=== PATIENT | female | born 1995 | race Caucasian/White ===

== ENCOUNTER 2018-06-14 06:26 | Emergency (ER) | payer MEDICAID ==
[~2018-06-14] VITALS: Ht 154.9 cm; Wt 58.0 kg
[2018-06-14 06:28] VITALS: BP 112/74; PULSE 75; RESP 16; Ht 154.9 cm; Wt 58.0 kg
--- NOTE | 2018-06-14 08:15 | ERD ---
ER Documentation Chief Complaint Chief Complaint pt is bib family approx 7 wks , bleeding starting this am HPI 22-year-old female presenting with vaginal bleeding that started this morning. Patient believes she is about 7 weeks . A1. LMP April 27. She is some mild suprapubic tenderness but no lateralized pain. She is being seen at outside clinic but does not recall the name. Denies medical problems. NKDA. Surgical history denies. Social history denies ROS All systems reviewed and are negative except as per history of present illness. Allergies Allergies: Coded Allergies: No Known Allergy (Unverified , 06/14/18) PMhx/Soc Medical and Surgical Hx: pt denies Medical Hx, pt denies Surgical Hx Hx Alcohol Use: No Hx Substance Use: No Hx Tobacco Use: No Smoking Status: Never smoker FmHx Family History: No diabetes, No coronary disease, No other Physical Exam Vitals Vital Signs Date Temp Pulse Resp B/P (MAP) Pulse Ox O2 O2 Flow FiO2 Time Delivery Rate 06/14/18 98.3 75 16 112/74 99 06:28 (87) Physical Exam GENERAL: The patient is well-appearing, well-nourished, in no acute distress CHEST: Clear to auscultation bilaterally. There are no rales, wheezes or rhonchi. HEART: Regular rate and rhythm. No murmurs, clicks, rubs or gallops. No S3 or S4. ABDOMEN:Soft, nontender and nondistended. Good bowel sounds. No rebound or guarding. No gross peritonitis. No gross organomegaly or masses. Result Diagram: 06/14/18 0650 Results 24 hrs Laboratory Tests Test 06/14/18 06:49 06/14/18 06:50 Urine Color YELLOW Urine Clarity SLIGHTLY CLOUDY Urine pH 6.0 Urine Specific [place] 1.016 Urine Ketones NEGATIVE mg/dL Urine Nitrite NEGATIVE mg/dL Urine Bilirubin NEGATIVE mg/dL Urine Urobilinogen NEGATIVE mg/dL Urine Leukocyte Esterase NEGATIVE [place]/ul Urine Microscopic RBC > 182 /HPF Urine Microscopic WBC 4 /HPF Urine Bacteria FEW /HPF Urine Hemoglobin 3+ mg/dL Urine Glucose NEGATIVE mg/dL Urine Total Protein NEGATIVE mg/dl White Blood Count 7.8 10^3/ul Red Blood Count 4.80 10^6/ul Hemoglobin 13.0 g/dl Hematocrit 40.0 % Mean Corpuscular Volume 83.3 fl Mean Corpuscular Hemoglobin 27.1 pg Mean Corpuscular Hemoglobin Concent 32.5 g/dl Red Cell Distribution Width 12.8 % Platelet Count 372 10^3/UL Mean Platelet Volume 10.8 fl Immature Granulocytes % 0.400 % Neutrophils % 57.1 % Lymphocytes % 31.6 % Monocytes % 7.2 % Eosinophils % 2.9 % Basophils % 0.8 % Nucleated Red Blood Cells % 0.0 /100WBC Immature Granulocytes # 0.030 10^3/ul Neutrophils # 4.5 10^3/ul Lymphocytes # 2.5 10^3/ul Monocytes # 0.6 10^3/ul Eosinophils # 0.2 10^3/ul Basophils # 0.1 10^3/ul Nucleated Red Blood Cells # 0.0 10^3/ul Beta HCG, Quantitative 649.7 mIU/ml Procedures/MDM DIAGNOSTIC IMAGING REPORT Patient: STEFAINA SUTTON : 1995 Age: 22 Sex: F MR #: [id number] DOS: 06/14/18 0643 Ordering MD: BRISA HOBSON PA-C Location: [facility] Room/Bed: PROCEDURE: US Pelvis. CLINICAL INDICATION: vaginal bleeding TECHNIQUE: Multiple sonographic images of the pelvis were obtained utilizing a transabdominal and endovaginal technique. The images were reviewed on a PACS workstation. COMPARISON: None. FINDINGS: The uterus is normal in size and demonstrates a normal appearance of the myometrium. The uterus measures 10.0 x 5.0 x 4.2 cm in size. The endometrial stripe is heterogeneous in appearance and has the thickness of 15 mm. No intrauterine gestation is noted. The ovaries are normal in size and echogenicity. Normal Doppler flow is identified in both ovaries. The right ovary measures 1.9 x 0.9 x 2.0 cm. The left ovary measures 2.9 x 1.6 x 2.0 cm. There is a small amount of complex free fluid in the cul-de-sac. RPTAT: AA IMPRESSION: No intrauterine gestation visualized. Heterogeneous endometrium. Small amount of complex free fluid in the pelvis, possibly hemorrhagic. Differential diagnosis includes early , missed or ectopic . Follow-up ultrasound and HCG levels is recommended. MDM: 22-year-old female presenting with vaginal bleeding. Patient is not passing clots. Patient is Rh+ does not require RhoGam injection. IUP is not seen on ultrasound however hCG levels are low so patient is recommended to return in 2 days for abdominal recheck. I have low suspicion for ectopic however is not completely excluded as patient did not have IUP seen on ultrasound. Patient does not have lateralized abdominal pain. Patient does not have infection noted in the urine. Patient is discharged stricter precautions and told to follow-up with primary care within 1-2 days for close evaluation. All questions answered discharge Departure Diagnosis: Primary Impression: Vaginal bleeding Condition: Stable Patient Instructions: Vaginal Bleed in Referrals: [facility] YOU HAVE RECEIVED A MEDICAL SCREENING EXAM AND THE RESULTS INDICATE THAT YOU DO NOT HAVE A CONDITION THAT REQUIRES URGENT TREATMENT IN THE EMERGENCY DEPARTMENT. FURTHER EVALUATION AND TREATMENT OF YOUR CONDITION CAN WAIT UNTIL YOU ARE SEEN IN YOUR DOCTORS OFFICE WITHIN THE NEXT 1-2 DAYS. IT IS YOUR RESPONSIBILITY TO MAKE AN APPOINTMENT FOR FOLOW-UP CARE. IF YOU HAVE A PRIMARY DOCTOR --you should call your primary doctor and schedule an appointment IF YOU DO NOT HAVE A PRIMARY DOCTOR YOU CAN CALL OUR PHYSICIAN REFERRAL HOTLINE AT IF YOU CAN NOT AFFORD TO SEE A PHYSICIAN YOU CAN CHOSE FROM THE FOLLOWING [facility] [address] [facility]. [facility] [address] [place] [facility] [address] [facility] [address] [facility] [facility] [address] [facility]. [facility]. [address] Additional Instructions: FOLLOW UP WITH YOUR PRIMARY CARE PHYSICIAN TOMORROW.Return to this facility if you are not improving as expected. JAYNE HOBSON PA-C Jun 14, 2018 08:15
== END 2018-06-14 07:52 | disposition home or self-care (01) ==
LOC: FTE 06:26
DX: O20.9 Hemorrhage in early pregnancy, unspecified (principal); R10.2 Pelvic and perineal pain; Z3A.01 Less than 8 weeks gestation of pregnancy
CPT/HCPCS: 36415; 76801; 76817; 81001; 84702; 85025; 86900; 86901; Z7502

== ENCOUNTER 2018-06-16 08:21 | Emergency (ER) | END 2018-06-16 10:48 | disposition home or self-care (01) ==

== ENCOUNTER 2018-12-06 10:51 | Emergency (ER) | payer MEDICAID ==
[~2018-12-06] VITALS: Ht 154.9 cm; Wt 62.5 kg
[2018-12-06 10:54] VITALS: BP 149/96; PULSE 78; RESP 18; Ht 154.9 cm; Wt 62.5 kg
--- NOTE | 2018-12-06 12:13 | ERD ---
ER Documentation Chief Complaint Chief Complaint pelvic pain x 5 days 5 weeks denies bleeding HPI 22-year-old female G2, P0 approximately 5 weeks complaining of lower pelvic pain that is cramping. She has no vaginal bleeding. No fever. No nausea or vomiting. No dysuria hematuria frequency. ROS All systems reviewed and are negative except as per history of present illness. Allergies Allergies: Coded Allergies: No Known Allergy (Unverified , 06/14/18) PMhx/Soc Medical and Surgical Hx: pt denies Surgical Hx Hx Miscellaneous Medical Probl: Yes (hx miscarriage) Hx Alcohol Use: No Hx Substance Use: No Hx Tobacco Use: No Smoking Status: Never smoker FmHx Family History: No diabetes Physical Exam Vitals Vital Signs Date Temp Pulse Resp B/P (MAP) Pulse Ox O2 O2 Flow FiO2 Time Delivery Rate 12/06/18 98.0 78 18 149/96 97 10:54 (113) Physical Exam INITIAL VITAL SIGNS: Reviewed by me GENERAL: Awake, alert and oriented x 4, well appearing, nontoxic, speaking in full sentences. No acute distress RESPIRATORY: Clear to auscultation bilaterally. Symmetric chest wall rise. No wheezing or rales. No accessory muscle use. CV: Regular rate and rhythm. No murmurs, rubs, or gallops. ABDOMEN: Soft, non-distended. Nontender. Negative [place]. Negative [place] point tenderness. No CVA tenderness bilaterally. No guarding. No rebound. Result Diagram: 12/06/18 1152 Results 24 hrs Laboratory Tests Test 12/06/18 11:52 White Blood Count 6.8 10^3/ul Red Blood Count 4.74 10^6/ul Hemoglobin 12.5 g/dl Hematocrit 38.3 % Mean Corpuscular Volume 80.8 fl Mean Corpuscular Hemoglobin 26.4 pg Mean Corpuscular Hemoglobin Concent 32.6 g/dl Red Cell Distribution Width 13.5 % Platelet Count 350 10^3/UL Mean Platelet Volume 10.5 fl Immature Granulocytes % 0.300 % Neutrophils % 61.7 % Lymphocytes % 28.7 % Monocytes % 6.6 % Eosinophils % 1.8 % Basophils % 0.9 % Nucleated Red Blood Cells % 0.0 /100WBC Immature Granulocytes # 0.020 10^3/ul Neutrophils # 4.2 10^3/ul Lymphocytes # 2.0 10^3/ul Monocytes # 0.5 10^3/ul Eosinophils # 0.1 10^3/ul Basophils # 0.1 10^3/ul Nucleated Red Blood Cells # 0.0 10^3/ul Urine Color YELLOW Urine Clarity CLEAR Urine pH 5.0 Urine Specific [place] 1.019 Urine Ketones NEGATIVE mg/dL Urine Nitrite NEGATIVE mg/dL Urine Bilirubin NEGATIVE mg/dL Urine Urobilinogen NEGATIVE mg/dL Urine Leukocyte Esterase NEGATIVE [place]/ul Urine Hemoglobin NEGATIVE mg/dL Urine Glucose NEGATIVE mg/dL Urine Total Protein NEGATIVE mg/dl Beta HCG, Quantitative 1431.5 mIU/ml Procedures/MDM 22-year-old female is here with pelvic pain during . She states she is approximately 5 weeks . She has no vaginal bleeding. OB work-up including labs ultrasound and urine ordered. Beta-hCG is 1431.5 ultrasound showsNo intrauterine gestation visualized. Moderate amount of complex free fluid in the left adnexa with possible echogenic material, suspicious for hemorrhage. Hemorrhagic corpus luteum cyst in the right ovary. Differential diagnosis includes early , ectopic or missed . Clinical correlation and follow-up is needed. Submucosal fibroid seen in the uterus. Patient given copies of the results she can follow-up. She should return in 2 to 3 days for reevaluation. Patient counseled regarding my diagnostic impression and care plan. Prior to discharge all questions answered. Pt agrees with treatment plan and understands strict return precautions. Pt is instructed to follow up with primary care provider within 24-48 hours. Precautionary instructions provided including instructions to return to the ER if not improving or for any worsening or changing symptoms or concerns. Departure Diagnosis: Primary Impression: Pelvic pain complicating Condition: Stable ANASTASIA WARD PA-C Dec 06, 2018 12:13
== END 2018-12-06 13:14 | disposition home or self-care (01) ==
LOC: FTE 10:51
DX: O26.891 Other specified pregnancy related conditions, first trimester (principal); R10.2 Pelvic and perineal pain; Z3A.01 Less than 8 weeks gestation of pregnancy
CPT/HCPCS: 36415; 76801; 76817; 81003; 84702; 85025; 86900; 86901; Z7502

== ENCOUNTER 2018-12-08 16:39 | Emergency (ER) | payer MEDICAID ==
[~2018-12-08] VITALS: Ht 154.9 cm; Wt 62.6 kg
[2018-12-08 16:43] VITALS: BP 120/56; PULSE 92; RESP 18; Ht 154.9 cm; Wt 62.6 kg
--- NOTE | 2018-12-08 18:15 | ERD ---
ER Documentation Chief Complaint Chief Complaint 5 WEEKS PREG , FOR RECHECK ON LOWER ABD PAIN X 5 DAYS , FEELING BETTER HPI 22-year-old female presents with early . She is approximate 5 weeks by dates. She was seen here 2 days ago and had a quantitative hCG of 1400. There is no visible on ultrasound. Concern was for ectopic. She was having pain on previous visit. She has never had any vaginal bleeding. She states the pain is resolved and she currently has no symptoms. She is a G2 para 0. ROS All systems reviewed and are negative except as per history of present illness. Allergies Allergies: Coded Allergies: No Known Allergy (Unverified , 06/14/18) PMhx/Soc Medical and Surgical Hx: pt denies Medical Hx, pt denies Surgical Hx Hx Miscellaneous Medical Probl: Yes (hx miscarriage) Hx Alcohol Use: No Hx Substance Use: No Hx Tobacco Use: No Physical Exam Vitals Vital Signs Date Temp Pulse Resp B/P (MAP) Pulse Ox O2 O2 Flow FiO2 Time Delivery Rate 12/08/18 98.1 92 18 120/56 99 16:43 (77) Physical Exam Const: No acute distress Head: Atraumatic Eyes: Normal Conjunctiva ENT: Normal External Ears, Nose and Mouth. Neck: Full range of motion. No meningismus. Resp: Clear to auscultation bilaterally Cardio: Regular rate and rhythm, no murmurs Abd: Soft, non tender, non distended. Normal bowel sounds Skin: No petechiae or rashes Back: No midline or flank tenderness Ext: No cyanosis, or edema Neur: Awake and alert Psych: Normal Mood and Affect Result Diagram: 12/08/18 1701 Results 24 hrs Laboratory Tests Test 12/08/18 17:01 White Blood Count 9.4 10^3/ul Red Blood Count 4.42 10^6/ul Hemoglobin 11.8 g/dl Hematocrit 35.9 % Mean Corpuscular Volume 81.2 fl Mean Corpuscular Hemoglobin 26.7 pg Mean Corpuscular Hemoglobin Concent 32.9 g/dl Red Cell Distribution Width 13.4 % Platelet Count 365 10^3/UL Mean Platelet Volume 10.4 fl Immature Granulocytes % 0.200 % Neutrophils % 58.8 % Lymphocytes % 31.2 % Monocytes % 6.9 % Eosinophils % 2.2 % Basophils % 0.7 % Nucleated Red Blood Cells % 0.0 /100WBC Immature Granulocytes # 0.020 10^3/ul Neutrophils # 5.5 10^3/ul Lymphocytes # 2.9 10^3/ul Monocytes # 0.7 10^3/ul Eosinophils # 0.2 10^3/ul Basophils # 0.1 10^3/ul Nucleated Red Blood Cells # 0.0 10^3/ul Urine Color YELLOW Urine Clarity SLIGHTLY CLOUDY Urine pH 6.0 Urine Specific [place] 1.013 Urine Ketones NEGATIVE mg/dL Urine Nitrite NEGATIVE mg/dL Urine Bilirubin NEGATIVE mg/dL Urine Urobilinogen NEGATIVE mg/dL Urine Leukocyte Esterase NEGATIVE [place]/ul Urine Microscopic RBC 1 /HPF Urine Microscopic WBC 4 /HPF Urine Squamous Epithelial Cells FEW /HPF Urine Bacteria FEW /HPF Urine Hemoglobin NEGATIVE mg/dL Urine Glucose NEGATIVE mg/dL Urine Total Protein NEGATIVE mg/dl POC Beta HCG, Qualitative POSITIVE Beta HCG, Quantitative 3151.5 mIU/ml Procedures/MDM Quantitative hCG today is 3151. Patient Rh+ from previous visit. Pelvic ultrasound shows a single anechoic rounded structure in the endometrium likely an early gestational sac. No identifiable ectopic . Ovaries are unremarkable. No pole or yolk sac seen. She presents with resolved pelvic pain of early . She has a gestational sac and a rising hCG. There is still some concern for ectopic although less so. She is advised to have one additional recheck in 2 to 3 days of ultrasound until pole or yolk sac is identified. Current signs or symptoms do not suggest surgical abdomen, appendicitis, ectopic but follow-up advised. The patient was stable with no new complaints during the ER course. Clinically, there is no current evidence to suggest meningitis, sepsis, acute abdomen, pneumonia, stroke, acute coronary syndrome, pulmonary embolism, aortic dissection or any other emergent condition appearing to require further evaluation or hospitalization. Patient counseled regarding my diagnostic impression and care plan. Prior to discharge all questions answered. Pt agrees with treatment plan and understands strict return precautions. Pt is instructed to follow up with primary care provider within 24- 48 hours. Precautionary instructions provided including instructions to return to the ER if not improving or for any worsening or changing symptoms or concerns. Disclaimer: Inadvertent spelling and grammatical errors are likely due to EHR/dictation software use and do not reflect on the overall quality of patient care. Also, please note that the electronic time recorded on this note does not necessarily reflect the actual time of the patient encounter. Departure Diagnosis: Primary Impression: Abdominal pain during Trimester: first trimester Qualified Codes: O26.891 - Other specified related conditions, first trimester; R10.9 - Unspecified abdominal pain Condition: Stable Patient Instructions: Abdominal Pain, Early Additional Instructions: Hormone levels rising and there is a visible sac today not seen previously. Recommend additional check in 2 to 4 days to evaluate normal . Recheck sooner for fevers, bleeding, worsening pain, new worsening symptoms. PRAVEENA QUINN MD Dec 08, 2018 18:15
== END 2018-12-08 18:32 | disposition home or self-care (01) ==
LOC: FTE 16:39
DX: O26.891 Other specified pregnancy related conditions, first trimester (principal); R10.9 Unspecified abdominal pain; R10.2 Pelvic and perineal pain; Z3A.01 Less than 8 weeks gestation of pregnancy
CPT/HCPCS: 36415; 76801; 76817; 81001; 81003; 81025; 84702; 85025

== ENCOUNTER 2018-12-11 12:15 | Emergency (ER) | payer MEDICAID ==
[~2018-12-11] VITALS: Ht 157.5 cm; Wt 63.1 kg
[2018-12-11 12:33] VITALS: BP 118/56; PULSE 74; RESP 18; Ht 157.5 cm; Wt 63.1 kg
--- NOTE | 2018-12-11 15:47 | ERD ---
ER Documentation Chief Complaint Chief Complaint pelvic pain recheck 5wks HPI 22-year-old female presenting with pelvic pain. Patient is about 5 weeks with no vaginal bleeding. LNMP October 30. Patient is being seen at the [facility] in [place]. She has not had an ultrasound. G3, . She is in pain to the right pelvic region. Denies medical problems. NKDA. Surgical history denies. Social history denies ROS All systems reviewed and are negative except as per history of present illness. Allergies Allergies: Coded Allergies: No Known Allergy (Unverified , 12/11/18) PMhx/Soc Hx Miscellaneous Medical Probl: Yes (hx miscarriage) Hx Alcohol Use: No Hx Substance Use: No Hx Tobacco Use: No Smoking Status: Never smoker FmHx Family History: No diabetes, No coronary disease, No other Physical Exam Vitals Vital Signs Date Temp Pulse Resp B/P (MAP) Pulse Ox O2 O2 Flow FiO2 Time Delivery Rate 12/11/18 97.5 74 18 118/56 100 12:33 (76) Physical Exam GENERAL: The patient is well-appearing, well-nourished, in no acute distress CHEST: Clear to auscultation bilaterally. There are no rales, wheezes or rhonchi. HEART: Regular rate and rhythm. No murmurs, clicks, rubs or gallops. ABDOMEN: Normal active bowel sounds. No distention. Got no organomegaly. Tender to palpation to the right lower pelvic region. Result Diagram: 12/11/18 1310 Results 24 hrs Laboratory Tests Test 12/11/18 13:10 12/11/18 13:30 White Blood Count 6.8 10^3/ul Red Blood Count 4.71 10^6/ul Hemoglobin 12.6 g/dl Hematocrit 38.7 % Mean Corpuscular Volume 82.2 fl Mean Corpuscular Hemoglobin 26.8 pg Mean Corpuscular Hemoglobin Concent 32.6 g/dl Red Cell Distribution Width 13.3 % Platelet Count 379 10^3/UL Mean Platelet Volume 10.4 fl Immature Granulocytes % 0.300 % Neutrophils % 57.0 % Lymphocytes % 32.1 % Monocytes % 7.5 % Eosinophils % 2.2 % Basophils % 0.9 % Nucleated Red Blood Cells % 0.0 /100WBC Immature Granulocytes # 0.020 10^3/ul Neutrophils # 3.9 10^3/ul Lymphocytes # 2.2 10^3/ul Monocytes # 0.5 10^3/ul Eosinophils # 0.2 10^3/ul Basophils # 0.1 10^3/ul Nucleated Red Blood Cells # 0.0 10^3/ul Beta HCG, Quantitative 54889.0 mIU/ml Urine Color YELLOW Urine Clarity SLIGHTLY CLOUDY Urine pH 7.0 Urine Specific [place] 1.014 Urine Ketones NEGATIVE mg/dL Urine Nitrite NEGATIVE mg/dL Urine Bilirubin NEGATIVE mg/dL Urine Urobilinogen NEGATIVE mg/dL Urine Leukocyte Esterase NEGATIVE [place]/ul Urine Microscopic RBC 0 /HPF Urine Microscopic WBC 2 /HPF Urine Squamous Epithelial Cells FEW /HPF Urine Bacteria FEW /HPF Urine Hemoglobin NEGATIVE mg/dL Urine Glucose NEGATIVE mg/dL Urine Total Protein NEGATIVE mg/dl Procedures/MDM DIAGNOSTIC IMAGING REPORT Patient: STEFANIA SUTTON : 1995 Age: 22 Sex: F MR #: [id number] DOS: 12/11/18 1305 Ordering MD: BRISA HOBSON PA-C Location: [facility] Room/Bed: PROCEDURE: US OB. CLINICAL INDICATION: Right-sided pelvic pain TECHNIQUE: Transabdominal and transvaginal sonographic evaluation of the uterus was performed. COMPARISON: Obstetrical sonogram dated 12/08/2018. FINDINGS: Uterus is retroverted and measures 8 x 5 x 6.4 cm. There is a small intrauterine fluid collection possibly containing yolk sac. There is no visible pole. Mean sac diameter measures 9.3 mm. Estimated gestational age based on this examination is 5 weeks and 3 days +/- 3 days. Estimated date of confinement based on this examination is 08/10/2019. Right ovary measures 3.5 x 2 x 2.1 cm. Left ovary measures 2.6 x 2.2 x 2.1 cm. There is a 2.5 cm thick-walled right ovarian cyst. There is no free pelvic fluid. IMPRESSION: 1. Small intrauterine fluid collection, could represent early gestational sac possibly containing yolk sac. No visible pole. Recommend close follow-up with serial Beta HCG measurements and repeat pelvic sonogram in 5 - 7 days to reevaluate and exclude ectopic . 2. A 2.5 cm thick-walled right ovarian cyst, likely corpus luteal cyst. ER course: Dr. Dorado, the laborist on-call evaluated patient at bedside for possible ectopic . He felt that patient was at low risk for an ectopic and should be followed with outpatient ultrasounds and blood work. MDM: 22-year-old female presenting with pelvic pain. I have low suspicion for hemodynamic instability or urinary tract infection. Ectopic is not completely excluded however yolk sac is seen on ultrasound and laborist feels that there is low concern for ectopic at this time. Patient should be followed up with [facility]. Patient is at risk for miscarriage. Patient is told symptoms change or worsen to return immediately to the ER. All questions answered at discharge Departure Diagnosis: Primary Impression: Threatened Condition: Stable Patient Instructions: Possible Miscarriage (Threatened ) Referrals: [facility] YOU HAVE RECEIVED A MEDICAL SCREENING EXAM AND THE RESULTS INDICATE THAT YOU DO NOT HAVE A CONDITION THAT REQUIRES URGENT TREATMENT IN THE EMERGENCY DEPARTMENT. FURTHER EVALUATION AND TREATMENT OF YOUR CONDITION CAN WAIT UNTIL YOU ARE SEEN IN YOUR DOCTORS OFFICE WITHIN THE NEXT 1-2 DAYS. IT IS YOUR RESPONSIBILITY TO MAKE AN APPOINTMENT FOR FOLOW-UP CARE. IF YOU HAVE A PRIMARY DOCTOR --you should call your primary doctor and schedule an appointment IF YOU DO NOT HAVE A PRIMARY DOCTOR YOU CAN CALL OUR PHYSICIAN REFERRAL HOTLINE AT IF YOU CAN NOT AFFORD TO SEE A PHYSICIAN YOU CAN CHOSE FROM THE FOLLOWING [facility] [address] [address] [facility] [address] [address] [facility] [address] [facility] [address] [facility]. [facility]. [address] Additional Instructions: FOLLOW UP WITH YOUR PRIMARY CARE PHYSICIAN TOMORROW.Return to this facility if you are not improving as expected. JAYNE HOBSON PA-C Dec 11, 2018 15:47
--- NOTE | 2018-12-11 16:10 | QN ---
Documentation Comment Jessek you for consulting us Mild Cramps No VB Abd soft NT Gneitalia No blood at perineum BHCG 18850 Ultrasound +YS SHE IS NOT NPO --->She needs to follow up her BhCG and ultrasound with her provider or Return to hospital in 2 days ---> and Ectopic precautions discussed with her KHUSHI KENDRICK M.D. Dec 11, 2018 16:10
== END 2018-12-11 15:17 | disposition home or self-care (01) ==
LOC: FTE 12:15
DX: O20.0 Threatened abortion (principal); R10.2 Pelvic and perineal pain; Z3A.01 Less than 8 weeks gestation of pregnancy
CPT/HCPCS: 36415; 76801; 76817; 81001; 81003; 84702; 85025; 86900; 86901; Z7502